=== PATIENT | male | born 1960 | race Hispanic/Latino ===

== ENCOUNTER → 2024-05-12 | Day surgery (SDC) | payer OTHER ==
[~2024-05-12] MED LIST: BRIMONIDINE TART5 ML OU; DORZOLAMIDE HCL10 ML OU; KETAMINE HCL INJ 50 MG/ML 10 ML VIAL ONE; LATANOPROST2.5 ML OU; LOSARTAN POTASS25 MG PO; MULTI-VITAMIN1 EACH PO; SIMVASTATIN40 MG PO
[2024-05-12] MEDS: LACTATED RINGER'S 1,000 ML ONE (09:17)
[2024-05-12 12:24] VITALS: TEMP 97.2
[2024-05-12 12:55] VITALS: BP 155/85; PULSE 63; RESP 16; O2SAT 96
== END | disposition home or self-care (01) ==
LOC: OR 09:07
PROVIDERS: ATTEND Internal Medicine Gastroenterology
DX: Z09 Encounter for follow-up examination after completed treatment for conditions other than malignant neoplasm (principal); D12.4 Benign neoplasm of descending colon; K64.8 Other hemorrhoids; I10 Essential (primary) hypertension; E78.5 Hyperlipidemia, unspecified; R06.02 Shortness of breath; F17.200 Nicotine dependence, unspecified, uncomplicated; Z01.810 Encounter for preprocedural cardiovascular examination; Z79.899 Other long term (current) drug therapy
CPT/HCPCS: 45380; 45385; 93005; J7121; 45378

== ENCOUNTER 2025-01-17 11:05 | Emergency (ER) | payer OTHER ==
[~2025-01-17] VITALS: Ht 177.8 cm; Wt 97.8 kg
[~2025-01-17 11:05] MED LIST changes: -KETAMINE HCL INJ 50 MG/ML 10 ML VIAL ONE
[2025-01-17] MEDS: MAGNESIUM/ALUMINUM/SIMETHICONE 30 ML UDC PO ONE (11:54)
[2025-01-17] MEDS: ONDANSETRON HCL INJ 2MG/ML 2ML 2 MG/ML VIAL IV STA (11:55)
[2025-01-17] MEDS: BELLADONNA ALK/PHENOBARBITAL 5 ML UDC PO ONE (11:55)
[2025-01-17] MEDS: ASPIRIN 325 MG TAB PO ONE (11:55)
[2025-01-17] MEDS: LORAZEPAM 0.5 MG TAB PO ONE (11:55)
[2025-01-17] MEDS ORDERED: HYDROXYZINE HCL10 MG PO (14:16)
[2025-01-17 14:20] VITALS: PULSE 66; RESP 17; TEMP 97.8; O2SAT 95
== END 2025-01-17 14:23 | disposition home or self-care (01) ==
LOC: FSED 11:08
DX: I10 Essential (primary) hypertension (principal); R53.83 Other fatigue; F41.9 Anxiety disorder, unspecified; E78.5 Hyperlipidemia, unspecified; H40.9 Unspecified glaucoma
CPT/HCPCS: 70450; 71046; 80048; 80076; 81003; 83880; 84484; 85025; 85379; 93005; 99283; J2405

== ENCOUNTER 2025-01-27 20:28 | Emergency (ER) | payer OTHER ==
[~2025-01-27] VITALS: Ht 177.8 cm; Wt 96.6 kg
[~2025-01-27 20:28] MED LIST changes: +HYDROXYZINE HCL10 MG PO
[2025-01-27] MEDS ORDERED: DONNATAL/LIDOCAINE/MAALOX 30 ML SUSP PO ONE (20:45)
[2025-01-27] MEDS ORDERED: IOPAMIDOL 370 MG/ML 100 ML INFUS..BTL INJ ONE (20:51)
[2025-01-27] MEDS: ONDANSETRON HCL INJ 2MG/ML 2ML 2 MG/ML VIAL IV STA (21:31)
[2025-01-27] MEDS: MAGNESIUM/ALUMINUM/SIMETHICONE 30 ML UDC PO ONE (21:32)
[2025-01-27] MEDS: BELLADONNA ALK/PHENOBARBITAL 5 ML UDC PO ONE (21:32)
[2025-01-27] MEDS: LIDOCAINE VISC 2% SOLN 100ML BLT PO ONE (21:32)
[2025-01-27] MEDS ORDERED: FAMOTIDINE20 MG PO (22:48)
[2025-01-27] MEDS ORDERED: CARAFATE1 GM PO (22:48)
[2025-01-27 22:50] VITALS: PULSE 60; RESP 16; TEMP 98; O2SAT 99
[2025-01-27] MEDS ORDERED: ONDANSETRON ODT4 MG PO (22:55)
[2025-01-27 23:04] VITALS: BP 136/78; PULSE 60; RESP 16; TEMP 98
== END 2025-01-27 23:02 | disposition home or self-care (01) ==
LOC: FSED 20:31
DX: R10.13 Epigastric pain (principal); R11.2 Nausea with vomiting, unspecified; I10 Essential (primary) hypertension; E78.5 Hyperlipidemia, unspecified
CPT/HCPCS: 74177; 80053; 81003; 85025; 93005; 96374; 99284; J2405; Q9967

== ENCOUNTER → 2025-02-12 | Day surgery (SDC) | payer OTHER ==
[~2025-02-12] MED LIST changes: +CARAFATE1 GM PO; +CARAFATE1 GM/10 ML PO; +CRESTOR40 MG PO; +DEXILANT60 MG PO; +FAMOTIDINE20 MG PO; +FENTANYL CITRATE/PF 100MCG/2 ML INJ ONE; +LIDOCAINE HCL 2% LOCAL INJ 5 ML SDV VIAL INJ ONE; +ONDANSETRON HCL INJ 2MG/ML 2ML 2 MG/ML VIAL ONE; +ONDANSETRON ODT4 MG PO; +ONDANSETRON ODT8 MG PO; +TEMAZEPAM15 MG PO
[2025-02-12] MEDS: LACTATED RINGER'S 1,000 ML ONE (13:38)
[2025-02-12 15:44] VITALS: TEMP 97.1
[2025-02-12 16:00] VITALS: BP 108/70; PULSE 61; RESP 15; O2SAT 98
== END | disposition home or self-care (01) ==
LOC: OR 12:14
PROVIDERS: ATTEND Internal Medicine Gastroenterology
DX: K21.00 Gastro-esophageal reflux disease with esophagitis, without bleeding (principal); K29.60 Other gastritis without bleeding; I10 Essential (primary) hypertension; E78.00 Pure hypercholesterolemia, unspecified; F17.210 Nicotine dependence, cigarettes, uncomplicated; Z86.0100 Personal history of colon polyps, unspecified; Z01.810 Encounter for preprocedural cardiovascular examination; Z68.30 Body mass index [BMI] 30.0-30.9, adult; Z79.899 Other long term (current) drug therapy
CPT/HCPCS: 43239; 93005; J2003; J2405; J2470; J3010; J7121